=== PATIENT | female | born 1965 | race Caucasian/White ===

== ENCOUNTER 2019-03-25 10:02 | Day surgery (SDC) | payer BC ==
[~2019-03-25 10:02] MED LIST: Buffered Lidocaine 1% SYRIN* 1 ML/SYRINGE INTRADERM ONE; Lactated Ringers 1000 ML Bag* 1,000 ML IV SCH
[2019-03-25] MEDS ORDERED: Buffered Lidocaine 1% SYRIN* 1 ML/SYRINGE INTRADERM ONE (10:39)
[2019-03-25] MEDS ORDERED: ceFAZolin 2 GM in NS PREMIX(*) 2 GM/100 ML BAG IVPB ONE (10:39)
[2019-03-25] MEDS ORDERED: fentaNYL* 50 MCG/ML 2 ML VIAL (100 MCG VIAL) ONE (11:57)
[2019-03-25] MEDS ORDERED: Midazolam* 1 MG/ML 2 ML VIAL (2 MG) ONE (11:57)
[2019-03-25] MEDS ORDERED: Bupivacaine 0.25% EPI 200,000* 30 ML SDV ONE (12:17)
[2019-03-25] MEDS ORDERED: Propofol* 10 MG/ML 20 ML BTL ONE (13:09)
[2019-03-25] MEDS ORDERED: Ondansetron INJ* 2 MG/ML VIAL ONE (13:09)
[2019-03-25] MEDS ORDERED: Dexamethasone IV* 4 MG/ML 1 ML (4 MG) ONE (13:09)
[2019-03-25] MEDS ORDERED: Succinylcholine* 20 MG/ML 10 ML VIAL ONE (13:09)
[2019-03-25] MEDS ORDERED: Ketorolac INJ* 30 MG/ML 1 ML VIAL ONE (13:10)
--- NOTE | 2019-03-25 13:51 | BRIEFOPN ---
Brief Operative Note - Surgery Procedures: Procedures OPERATIVE REPORT Pre-op: Gallstones, right upper abdominal pain Post-Op: Same Procedure:Laparoscopic cholecystectomy Surgeon: MD Michele Asst: IBRAHIMA Davis, TIP Evans Anes: general with local , Dr. Lind IVF:1 liter of crystalloid EBL:min Specimen: Gallbladder Drain: None Wound: 2 Findings: Normal appearing gallbladder To PACU
[2019-03-25] MEDS ORDERED: PROCHLORPERAZINE INJ 5 MG/ML 2 ML VIAL ONE (14:46)
[2019-03-25] MEDS ORDERED: HYDROmorphone INJ1* 1 MG/ML SYRINGE ONE (14:56)
[2019-03-25] MEDS ORDERED: Naloxone* 0.4 MG/ML 1 ML VIAL IV PRN (15:06)
[2019-03-25] MEDS ORDERED: PROCHLORPERAZINE INJ 5 MG/ML 2 ML VIAL IV PRN (15:06)
[2019-03-25] MEDS ORDERED: HYDROmorphone INJ1* 1 MG/ML SYRINGE IV PRN (15:06)
[2019-03-25 15:59] VITALS: BP 82/58
--- NOTE | 2019-03-25 20:42 | OP ---
DATE OF OPERATION: 03/25/19 [facility] DATE OF : 67 SURGEON: Jaylon Bautista MD ENVIRONMENTAL PROJECT MANAGER: IBRAHIMA Prince ANESTHESIOLOGIST: Dr. Lind. ANESTHESIA: General with local. PRE-OP DIAGNOSIS: Cholelithiasis and right upper quadrant abdominal pain. POST-OP DIAGNOSIS: Cholelithiasis and right upper quadrant abdominal pain. OPERATIVE PROCEDURE: Laparoscopic cholecystectomy. ESTIMATED BLOOD LOSS: Minimal. IV FLUIDS: 1 L of crystalloids. SPECIMENS: Gallbladder. WOUND CLASSIFICATION: 2. COMPLICATIONS: None. DRAINS: None. FINDINGS: Small gallstones in a normal-appearing gallbladder. DESCRIPTION OF PROCEDURE: Written and informed consent was obtained, the abdomen was marked with indelible ink and preoperative antibiotics were administered. The patient was taken to the operating room, placed in the supine position where sequential compression devices and a warming blanket were applied. General anesthesia was administered. The abdomen was prepped and draped in the usual sterile fashion. Time-out verification was completed. Initially a small amount of lidocaine was injected just below the midline and a transverse incision was made and carried down to the midline of the fascia. The peritoneal cavity was entered direct vision. A 12 mm blunt port was inserted and the abdomen was insufflated to 15 mmHg. Under direct vision a 5 mm epigastric port was placed and two 5 mm ports were placed on the right side of the abdominal wall. The liver appeared to be normal. The gallbladder was identified. It was blue in color with some omental attachments to it, which appeared to be chronic, which were taken down sharply to expose the infundibulum. The gallbladder was elevated up over the liver bed and with care the peritoneum along the medial and lateral aspects of the gallbladder was excised sharply to expose the cystic duct and artery as they entered the gallbladder. Cystic duct was inspected and small caliber. I took a considerable portion of the inferior part of the gallbladder off the liver bed using a critical view technique to assure myself on these two structures as they entered the gallbladder. The cystic duct and artery were then doubly clipped and divided. The gallbladder was removed from the liver bed using cautery and placed in an EndoCatch bag and brought out through the umbilical incision. The liver bed was evaluated. There was no evidence of bleeding or bile leak. All ports were removed under direct vision of the camera. No abdominal wall bleeding. The umbilical fascia was closed interrupted 0-Vicryl suture. The skin at all 4 incisions was approximated with subcuticular 4-0 Vicryl suture. Steri-Strips were applied. The patient tolerated the procedure well and was taken to the recovery room in stable condition. [id number]/[id number] #: [id number] MTDD
== END 2019-03-25 16:26 | disposition home or self-care (01) ==
LOC: OR 10:02
PROVIDERS: ATTEND Surgery
DX: K80.10 Calculus of gallbladder with chronic cholecystitis without obstruction (principal); R10.11 Right upper quadrant pain; K58.9 Irritable bowel syndrome, unspecified
CPT/HCPCS: 88304; J0330; J0690; J0780; J1100; J1170; J1885; J2250; J2405; J2704; J3010